=== PATIENT | female | born 1970 | race Hispanic/Latino ===

== ENCOUNTER 2017-09-17 08:49 | Emergency (ER) | payer BC ==
[~2017-09-17] VITALS: Ht 165.1 cm; Wt 100.0 kg
[~2017-09-17 08:49] MED LIST: MEDDOSEPAK PO; MIRENA IU; PRILOSEC20 MG/CAP PO; ZOFRAN4 MG OR; ZYRTEC10 M3 OR
[2017-09-17] MEDS ORDERED: METHOCARBAMOL500 MG PO (09:02)
[2017-09-17 14:02] VITALS: BP 134/88
[2017-09-17] MEDS ORDERED: STERAPRED DS10 MG PO (14:09)
== END 2017-09-17 14:17 | disposition home or self-care (01) | DRG 552 ==
LOC: ED 08:49
DX: M54.17 Radiculopathy, lumbosacral region (principal)

== ENCOUNTER 2017-12-22 14:23 | Emergency (ER) | payer OTHER, BC ==
[~2017-12-22] VITALS: Ht 165.1 cm; Wt 107.0 kg
[~2017-12-22 14:23] MED LIST changes: +METHOCARBAMOL500 MG PO; +STERAPRED DS10 MG PO
[2017-12-22 15:23] LABS: HEMOGLOBIN 12.5 g/dl (12.0-16.0); IMMATURE GRANULOCYTES 0.2 % (0.0-1.0); MEAN CELL VOLUME 88.5 fL CALC (80.0-100.0); MEAN CORPUSCULAR HGB 29.9 pG CALC (26.0-32.0); MEAN CORPUSCULAR HGB CONC 33.8 g/L CALC (32.0-36.0); NEUT# 7.08 thou/uL (2.00-7.15); RED BLOOD COUNT 4.18 mill/uL (4.20-5.60); RED CELL DISTRI WIDTH 12.5 % (11.5-15.5)
[2017-12-22 15:39] LABS: ANION GAP 20 (6-22 (CALC)); BUN 19 mg/dL (7-17); BUN/CREATININE RATIO 25 (12-20 (CALC)); CARBON DIOXIDE 21 mmol/l (22-30); CHLORIDE 107 mmol/l (95-108); CREATININE 0.8 mg/dL (0.5-1.0); GFR > 60 ML/MIN (>=60 (CALC)); GFR FOR AFR.AMER. > 60 ML/MIN (>=60 (CALC)); POTASSIUM 4.4 mmol/l (3.5-5.1)
[2017-12-22 15:43] LABS: SODIUM 144 mmol/l (137-146)
[2017-12-22 17:10] LABS: URINE BILIRUBIN - DIPSTICK NEGATIVE (NEGATIVE); URINE BLOOD DIPSTICK NEGATIVE (NEGATIVE); URINE COLOR YELLOW; URINE GLUCOSE - DIPSTICK NEGATIVE (NEGATIVE); URINE KETONE NEGATIVE (NEGATIVE); URINE LEUK ESTERASE NEGATIVE (NEGATIVE); URINE NITRITE - DIPSTICK NEGATIVE (Negative); URINE PH 5.5 (4.5-8.0); URINE PROTEIN - DIPSTICK NEGATIVE (NEG-TRACE); URINE UROBILINOGEN - DIPSTICK 0.2 E.U./dL (0.2)
[2017-12-22 17:11] LABS: URINE CLARITY CLEAR
[2017-12-22 17:50] VITALS: BP 147/87
== END 2017-12-22 18:00 | disposition home or self-care (01) | DRG 552 ==
LOC: ED 14:23
PROVIDERS: Family Medicine
DX: M62.830 Muscle spasm of back (principal); V59.50XA Passenger in pick-up truck or van injured in collision with unspecified motor vehicles in traffic accident, initial encounter

== ENCOUNTER 2018-05-28 05:25 | Emergency (ER) | payer BC ==
[~2018-05-28] VITALS: Ht 165.1 cm; Wt 100.6 kg
[2018-05-28 06:08] LABS: IMMATURE GRANULOCYTES 0.3 % (0.0-5.0); MEAN CELL VOLUME 87.2 fL CALC (80.0-100.0); MEAN CORPUSCULAR HGB 29.4 pG CALC (26.0-32.0); MEAN CORPUSCULAR HGB CONC 33.7 g/L CALC (32.0-36.0); NEUT# 9.21 thou/uL (2.00-7.15); RED BLOOD COUNT 4.93 mill/uL (4.20-5.60); RED CELL DISTRI WIDTH 12.8 % (11.5-15.5)
[2018-05-28 06:35] LABS: ALKALINE PHOSPHATASE 105 u/l (38-126); AMYLASE 56 u/l (30-110); ANION GAP 17 (6-22 (CALC)); BILIRUBIN, TOTAL 0.5 mg/dL (0.0-1.4); BUN 17 mg/dL (7-17); BUN/CREATININE RATIO 24 (12-20 (CALC)); CARBON DIOXIDE 22 mmol/l (22-30); CHLORIDE 106 mmol/l (95-108); CREATININE 0.7 mg/dL (0.5-1.0); GFR > 60 ML/MIN (>=60 (CALC)); GFR FOR AFR.AMER. > 60 ML/MIN (>=60 (CALC)); LIPASE 97 u/l (23-300); POTASSIUM 4.2 mmol/l (3.5-5.1); SGOT/AST 16 u/l (14-36); SGPT/ALT 29 u/l (9-52); SODIUM 140 mmol/l (137-146)
[2018-05-28 06:37] LABS: ALBUMIN 4.3 g/dL (3.2-5.0); TOTAL PROTEIN 7.4 g/dL (6.3-8.2)
[2018-05-28 06:43] LABS: HEMOGLOBIN 14.5 g/dl (12.0-16.0)
[2018-05-28] MEDS ORDERED: ZOFRAN ODT4 MG PO (06:45)
[2018-05-28] MEDS ORDERED: IMODIUM2 MG PO (06:45)
[2018-05-28 07:04] VITALS: BP 132/83
== END 2018-05-28 07:09 | disposition home or self-care (01) | DRG 392 ==
LOC: ED 05:25
PROVIDERS: Emergency Medicine
DX: R11.2 Nausea with vomiting, unspecified (principal); R19.7 Diarrhea, unspecified

== ENCOUNTER 2019-06-05 06:40 | Emergency (ER) | payer BC ==
[~2019-06-05] VITALS: Ht 165.1 cm; Wt 105.0 kg
[~2019-06-05 06:40] MED LIST changes: +IMODIUM2 MG PO; +ZOFRAN ODT4 MG PO
[2019-06-05] MEDS ORDERED: ZOFRAN4 MG/TAB SL (06:59)
[2019-06-05 08:11] VITALS: BP 110/76
== END 2019-06-05 07:20 | disposition home or self-care (01) | DRG 392 ==
LOC: ED 06:40
DX: R11.2 Nausea with vomiting, unspecified (principal)
CPT/HCPCS: Q9967

== ENCOUNTER 2019-06-05 20:15 | Emergency (ER) | payer BC ==
[~2019-06-05] VITALS: Ht 165.1 cm; Wt 100.0 kg
[~2019-06-05 20:15] MED LIST changes: +ZOFRAN4 MG/TAB SL
[2019-06-05 21:19] LABS: HEMATOCRIT 41.2 % (37.0-47.0); HEMOGLOBIN 13.4 g/dl (12.0-16.0); IMMATURE GRANULOCYTES 0.2 % (0.0-5.0); MEAN CELL VOLUME 87.8 fL CALC (80.0-100.0); MEAN CORPUSCULAR HGB 28.6 pG CALC (26.0-32.0); MEAN CORPUSCULAR HGB CONC 32.5 g/L CALC (32.0-36.0); NEUT# 3.8 thou/uL (2.00-7.15); RED BLOOD COUNT 4.69 mill/uL (4.20-5.60); RED CELL DISTRI WIDTH 12.7 % (11.5-15.5)
[2019-06-05 21:23] LABS: URINE BILIRUBIN - DIPSTICK NEGATIVE (NEGATIVE); URINE BLOOD DIPSTICK TRACE-INTACT (NEGATIVE); URINE COLOR YELLOW; URINE GLUCOSE - DIPSTICK NEGATIVE (NEGATIVE); URINE KETONE NEGATIVE (NEGATIVE); URINE LEUK ESTERASE NEGATIVE (NEGATIVE); URINE NITRITE - DIPSTICK NEGATIVE (Negative); URINE PH 5.5 (4.5-8.0); URINE PROTEIN - DIPSTICK NEGATIVE (NEG-TRACE); URINE SPECIFIC GRAVITY >=1.030; URINE UROBILINOGEN - DIPSTICK 0.2 E.U./dL (0.2)
[2019-06-05 21:38] LABS: ALBUMIN 4.3 g/dL (3.2-5.0); ALKALINE PHOSPHATASE 106 u/l (38-126); AMYLASE 60 u/l (30-110); ANION GAP 12 (6-22 (CALC)); BILIRUBIN, TOTAL 0.4 mg/dL (0.0-1.4); BUN 14 mg/dL (7-17); BUN/CREATININE RATIO 22 (12-20 (CALC)); CARBON DIOXIDE 26 mmol/l (22-30); CHLORIDE 104 mmol/l (95-108); CREATININE 0.7 mg/dL (0.5-1.0); GFR > 60 ML/MIN (>=60 (CALC)); GFR FOR AFR.AMER. > 60 ML/MIN (>=60 (CALC)); LIPASE 78 u/l (23-300); POTASSIUM 3.8 mmol/l (3.5-5.1); SGOT/AST 23 u/l (14-36); SODIUM 138 mmol/l (137-146); TOTAL PROTEIN 7.8 g/dL (6.3-8.2)
[2019-06-05 21:48] LABS: MYOGLOBIN 29 ng/mL (0 - 62)
[2019-06-05 23:15] VITALS: BP 114/73
== END 2019-06-05 23:15 | disposition home or self-care (01) | DRG 392 ==
LOC: ED 20:15
PROVIDERS: Emergency Medicine
DX: R10.11 Right upper quadrant pain (principal); D36.7 Benign neoplasm of other specified sites; R11.2 Nausea with vomiting, unspecified; R50.9 Fever, unspecified
CPT/HCPCS: Q9967

== ENCOUNTER 2020-07-01 15:00 | Emergency (ER) | payer OTHER, BC ==
[~2020-07-01] VITALS: Ht 172.7 cm; Wt 80.0 kg
[2020-07-01] MEDS ORDERED: OMEPRAZOLE20 MG PO (16:59)
[2020-07-01 17:06] VITALS: BP 135/76
== END 2020-07-01 17:11 | disposition home or self-care (01) | DRG 556 ==
LOC: ED 15:00
DX: M25.572 Pain in left ankle and joints of left foot (principal)